=== PATIENT | male | born 2000 | race Asian ===

== ENCOUNTER 2021-11-01 10:11 | Observation (INO) ==
[2021-11-01] MEDS ORDERED: Dexamethasone IV 4 MG/ML VIAL 1 ml VIAL IV SLOW PU ONE (11:04)
[2021-11-01] MEDS ORDERED: Lactated Ringers 1000 ml BAG 1,000 ML IV ONE (11:04)
[2021-11-01 11:47] LABS: ABS Basophils 0.1 10^3/ul (0-0.2); ABS Lymphocytes 0.7 10^3/ul (1.0-4.8); ABS Monocytes 1.1 10^3/ul (0-0.8); ABS Neutrophils 14.6 10^3/ul (1.5-7.7); Hematocrit 45 % (42-52); Hemoglobin 15.5 g/dL (14.0-18.0); Mean Corpuscular HGB Conc 35 g/dL (31-36); Mean Corpuscular Hemoglobin 30 pg (27-31); Mean Corpuscular Volume 88 fL (80-94); Mean Platelet Volume 7.6 fL (7.4-10.4); Nucleated Red Blood Cells % 0.1; Platelet Count 260 10^3/uL (150-450); Red Cell Distribution Width 13 % (10-15); White Blood Count 16.5 10^3/uL (3.5-10.8)
[2021-11-01 11:54] LABS: Rapid Strep Molecular Negative (Negative)
[2021-11-01 12:02] LABS: Albumin 4.5 g/dL (3.2-5.2); Calcium 9.9 mg/dL (8.6-10.3); Potassium 3.8 mmol/L (3.5-5.0); Total Bilirubin 1.8 mg/dL (0.2-1.0)
[2021-11-01 12:08] LABS: Albumin/Globulin Ratio 1.3 (1-3); Globulin 3.6 g/dL (2-4); Total Protein 8.1 g/dL (6.4-8.9); eGFR CKD-EPI 123.7 (>60)
[2021-11-01] MEDS ORDERED: Iohexol 300 (CONTRAST) 10 ML SDV IV ONE (12:28)
[2021-11-01] MEDS ORDERED: cefTRIAXone 1 gm/50 mL NS BAG 1 GM/50 ML BAG IV ONE (13:38)
[2021-11-01] MEDS ORDERED: Piperacillin/Tazobac ADVAN 3.375 GM in NS 0.9% 100 ml BAG 100 ML IV ONE (14:00)
[2021-11-01 16:27] LABS: C Reactive Protein 155.92 mg/L (<8.01)
[2021-11-01] MEDS ORDERED: Acetaminophen IV 1 GM/100ML 100 ML IV PRN (17:29)
[2021-11-01] MEDS: Dexamethasone IV 4 MG/ML VIAL 1 ml VIAL IV SLOW PU SCH (19:42)
[2021-11-01] MEDS: Pantoprazole VIAL 40 MG VIAL IV SCH (19:42)
[2021-11-01] MEDS: Lactated Ringers 1000 ml BAG 1,000 ML IV SCH (19:57)
[2021-11-01] MEDS ORDERED: Clindamycin 600 MG/D5W BAG 600 MG/50 ML BAG IV SCH (20:30)
[2021-11-01] MEDS: Clindamycin 600 MG/D5W BAG 600 MG/50 ML BAG IV SCH (22:12)
[2021-11-02] MEDS: Dexamethasone IV 4 MG/ML VIAL 1 ml VIAL IV SLOW PU SCH ×2 (04:49→12:59)
[2021-11-02] MEDS: Lactated Ringers 1000 ml BAG 1,000 ML IV SCH (04:50)
[2021-11-02] MEDS: Clindamycin 600 MG/D5W BAG 600 MG/50 ML BAG IV SCH ×2 (04:50→12:59)
[2021-11-02 05:44] LABS: Hematocrit 41 % (42-52); Hemoglobin 14.1 g/dL (14.0-18.0); Mean Corpuscular HGB Conc 34 g/dL (31-36); Mean Corpuscular Hemoglobin 31 pg (27-31); Mean Corpuscular Volume 91 fL (80-94); Mean Platelet Volume 8.1 fL (7.4-10.4); Platelet Count 255 10^3/uL (150-450); Red Blood Count 4.58 10^6 /uL (4.18-5.48); Red Cell Distribution Width 14 % (10-15); White Blood Count 17.1 10^3/uL (3.5-10.8)
[2021-11-02 06:31] LABS: Potassium 3.9 mmol/L (3.5-5.0)
[2021-11-02 06:32] LABS: Calcium 9.1 mg/dL (8.6-10.3)
[2021-11-02 06:37] LABS: eGFR CKD-EPI 132.5 (>60)
[2021-11-02] MEDS: Pantoprazole VIAL 40 MG VIAL IV SCH (09:11)
[2021-11-02 15:00] VITALS: BP 114/77
[2021-11-02 15:06] LABS: EBV Capsid Ag IgG Ab Negative (Negative); EBV Capsid Ag IgM Ab Negative (Negative); Epstein-Barr Nuclear Antigen Negative (Negative)
== END 2021-11-02 16:06 | disposition home or self-care (01) ==
LOC: ED 10:11 → EDHOLD 10:11 → SUATTDRO 15:18 → MED 18:15
PROVIDERS: ADMIT Internal Medicine; ATTEND Internal Medicine